=== PATIENT | male | born 1940 | race Caucasian/White ===

== ENCOUNTER 2018-06-09 09:42 | Outpatient (CLI) | payer MEDICARE, OTHER ==
[2017-02-17 09:34] VITALS: BP 142/85
[2018-06-09 10:59] LABS: eGFR (Non-African) > 60
== END 2018-06-09 09:44 ==
LOC: LAB 09:42 → MERGE 09:42 → LAB 09:44
PROVIDERS: ATTEND Family Medicine
DX: I48.91 Unspecified atrial fibrillation (principal)
CPT/HCPCS: 36415; 80053; 80061